=== PATIENT | male | born 1960 | race Caucasian/White ===

== ENCOUNTER 2023-09-04 04:11 | Day surgery (SDC) | payer BC ==
[2023-09-04 04:15] VITALS: BMI 27.8
[2023-09-04] MEDS ORDERED: IBUPROFEN 400 MG TABLET (FP) PO ONE ×2 (04:40→04:45)
[2023-09-04 05:11] LABS: PH,URINE 6.5 (5.0-8.0); URINE APPEARANCE Clear; URINE BILIRUBIN Negative (NEGATIVE); URINE COLOR Yellow; URINE GLUCOSE (UA) Negative (NEGATIVE); URINE KETONE Trace (NEGATIVE); URINE LEUK ESTERASE Negative (NEGATIVE); URINE NITRITE Negative (NEGATIVE); URINE PROTEIN 2+ (NEGATIVE)
[2023-09-04] MEDS ORDERED: SODIUM CHLORIDE 0.9% 500 ML INFUS.BAG IV ONE ×2 (06:05→07:42)
[2023-09-04 07:09] LABS: BASO % 0.6 % (0-2.0); EOS % 1.4 % (0-4.5); HEMATOCRIT 40.8 % (35.4-49); HEMOGLOBIN 13.9 GM/dL (11.7-16.9); LYMPH % 18.2 % (8-40); MCH 32.3 pg (25.7-33.7); MEAN CELL VOLUME 95.1 fl (80-96); MEAN PLT VOLUME 7.7 fl (7.5-11.1); MONO % 7.4 % (3.8-10.2); NEUT % 72.4 % (42.8-82.8); PLATELET COUNT 265 10^3/uL (134-434); RDW 13.1 % (11.9-15.9); WHITE BLOOD COUNT 10.1 K/mm3 (4.0-10.0)
[2023-09-04 07:23] LABS: POTASSIUM 4.4 mmol/L (3.5-5.1)
[2023-09-04 07:25] LABS: ALBUMIN 3.4 g/dl (3.4-5.0); BLOOD UREA NITROGEN 16.7 mg/dL (7-18); CALCIUM 8.7 mg/dL (8.5-10.1)
[2023-09-04 07:28] LABS: CREATININE 1.4 mg/dL (0.55-1.3)
[2023-09-04 07:30] LABS: BILIRUBIN,TOTAL 0.3 mg/dL (0.2-1); TOT PROT 6.4 g/dl (6.4-8.2)
[2023-09-04] MEDS ORDERED: LACTATED RINGERS SOLUTION 1,000 ML/1,000 ML INFUS.BAG IV SCH ×2 (08:15→14:18)
[2023-09-04 08:20] LABS: INR 0.92 (0.83-1.09); PROTHROMBIN TIME (PATIENT) 10.7 SEC (9.7-13.0)
[2023-09-04] MEDS ORDERED: KETOROLAC TROMETHAMINE 15 MG/ML VIAL IVPUSH PRN (08:26)
[2023-09-04] MEDS ORDERED: TAMSULOSIN HCL 0.4 MG CAP PO ONE (08:45)
[2023-09-04] MEDS ORDERED: TAMSULOSIN HCL 0.4 MG CAP ONE (09:04)
[2023-09-04] MEDS ORDERED: KETOROLAC TROMETHAMINE 30 MG/1 ML VIAL ONE (09:19)
[2023-09-04] MEDS ORDERED: ACETAMINOPHEN 1000 MG/100 ML BAG IVPB PRN ×2 (09:29→14:18)
[2023-09-04] MEDS ORDERED: metoPROLOL SUCCINATE 25 MG TAB.SR.24H (FP) PO SCH (10:00)
[2023-09-04] MEDS ORDERED: metoPROLOL SUCCINATE 25 MG TAB.SR.24H (FP) PO ONE (10:44)
[2023-09-04] MEDS ORDERED: ACETAMINOPHEN INJECTION 100 ML IVPB ONE (11:07)
[2023-09-04] MEDS ORDERED: PROPOFOL 20 ML ONE ×2 (13:00→13:31)
[2023-09-04] MEDS ORDERED: MIDAZOLAM HCL 2 MG/2 ML SINGLE DOSE VIAL ONE (13:00)
[2023-09-04] MEDS ORDERED: ceFAZolin SODIUM 1 GM VIAL IVPB ONE (13:32)
[2023-09-04] MEDS ORDERED: ceFAZolin SODIUM 1 GM VIAL ONE (13:35)
[2023-09-04] MEDS ORDERED: DEXAMETHASONE SOD PHOSPHATE 4 MG/1 ML VIAL ONE (13:35)
[2023-09-04] MEDS ORDERED: ONDANSETRON 4 MG/2 ML VIAL ONE ×2 (13:35→14:09)
[2023-09-04] MEDS ORDERED: IOHEXOL 300 MG/ML INFUS..BTL IJ ONE (13:45)
[2023-09-04] MEDS ORDERED: SEVOFLURANE 250 ML BTL ONE (13:46)
[2023-09-04] MEDS ORDERED: HEPARIN NA (PORCINE) 5,000 UNITS/ML 1ML VIAL SQ SCH (14:00)
[2023-09-04] MEDS ORDERED: oxyCODONE HCL 5 MG TABLET PO PRN (14:12)
[2023-09-04] MEDS ORDERED: ONDANSETRON 4 MG/2 ML VIAL IVPUSH PRN (14:12)
[2023-09-04 16:54] VITALS: RESP 18
[2023-09-04] MEDS: INSULIN SLIDING SCALE (NOVOLOG) 1 VIAL SQ SCH ×2 (17:31→22:42)
[2023-09-04] MEDS ORDERED: ROSUVASTATIN CA 10 MG TABLET PO SCH ×2 (22:00)
[2023-09-05] MEDS: INSULIN SLIDING SCALE (NOVOLOG) 1 VIAL SQ SCH ×2 (06:42→11:20)
[2023-09-05] MEDS ORDERED: metoPROLOL SUCCINATE 25 MG TAB.SR.24H (FP) PO SCH (10:00)
[2023-09-05 12:24] VITALS: BP 122/69; PULSE 86; TEMP 97.8
== END 2023-09-05 12:33 | disposition home or self-care (01) ==
LOC: JER 04:11 → JERBED 08:16 → UNDOADMOB 08:16 → J6S 16:18 → JERBED 16:18 → J6S 09-05 09:54 → JASUSAT 09-05 10:01 → J6S 09-05 10:08 → JASUSAT 09-05 12:33
PROVIDERS: ATTEND Internal Medicine
PROC: 0WHR8YZ Insertion of Other Device into Genitourinary Tract, Via Natural or Artificial Opening Endoscopic (ICD-10-PCS; principal; 2023-09-05)
DX: N13.30 Unspecified hydronephrosis (principal)
CPT/HCPCS: 36415; 74176-TC; 76000-TC-FY; 80053; 81003; 82962; 83036; 85025; 85610; 86850; 86900; 86901; 93005; 93010; 94760; 99285-25; C2617

== ENCOUNTER 2023-09-20 04:46 | Day surgery (SDC) | payer BC ==
[2023-09-15 14:32] VITALS: BMI 26.4
[2023-09-20] MEDS ORDERED: IOHEXOL 300 MG/ML INFUS..BTL IV ONE ×3 (16:34→17:08)
[2023-09-20] MEDS ORDERED: FENTANYL CITRATE/PF 50 MCG/ML VIAL ONE (16:58)
[2023-09-20] MEDS ORDERED: MIDAZOLAM HCL 2 MG/2 ML SINGLE DOSE VIAL ONE (16:58)
[2023-09-20] MEDS ORDERED: PROPOFOL 20 ML ONE (16:58)
[2023-09-20] MEDS ORDERED: LIDOCAINE HCL/PF 2% SDV 5ML VIAL ONE (16:59)
[2023-09-20] MEDS ORDERED: ONDANSETRON 4 MG/2 ML VIAL ONE (16:59)
[2023-09-20] MEDS ORDERED: ceFAZolin SODIUM 1 GM VIAL ONE (17:08)
[2023-09-20] MEDS ORDERED: ceFAZolin SODIUM 1 GM VIAL IVPB ONE (17:08)
[2023-09-20] MEDS ORDERED: KETOROLAC TROMETHAMINE 30 MG/1 ML VIAL ONE (17:10)
[2023-09-20] MEDS ORDERED: SEVOFLURANE 250 ML BTL ONE (17:31)
[2023-09-20] MEDS ORDERED: ONDANSETRON 4 MG/2 ML VIAL IVPUSH PRN (17:44)
[2023-09-20] MEDS ORDERED: oxyCODONE HCL 5 MG TABLET PO PRN ×2 (17:44)
[2023-09-20] MEDS ORDERED: ACETAMINOPHEN 1000 MG/100 ML BAG IVPB PRN (17:44)
[2023-09-20] MEDS ORDERED: PROMETHAZINE HCL 25 MG/1 ML VIAL IVPB PRN (17:44)
[2023-09-20] MEDS ORDERED: LACTATED RINGERS SOLUTION 1,000 ML IV SCH (17:45)
[2023-09-20] MEDS ORDERED: oxyCODONE HCL 10 MG SUSTAINED ACTING TABLET ONE (18:57)
[2023-09-20 19:06] VITALS: TEMP 98.3
[2023-09-20 20:43] VITALS: BP 130/81; PULSE 75; RESP 20
== END 2023-09-20 20:39 | disposition home or self-care (01) ==
LOC: JASU-SURG 04:46
PROVIDERS: ATTEND Urology
PROC: 0TC68ZZ Extirpation of Matter from Right Ureter, Via Natural or Artificial Opening Endoscopic (ICD-10-PCS; principal; 2023-09-20 14:00)
PROC: 0T768DZ Dilation of Right Ureter with Intraluminal Device, Via Natural or Artificial Opening Endoscopic (ICD-10-PCS; 2023-09-20 14:00)
DX: N40.1 Benign prostatic hyperplasia with lower urinary tract symptoms (principal)
CPT/HCPCS: 76000-TC-FY; 82962; 94760; C1758; C2617

== ENCOUNTER 2023-09-20 11:00 | Emergency (ER) | payer BC ==
[2023-09-20 11:22] VITALS: BP 148/101; PULSE 101; RESP 18; TEMP 97.9; BMI 27.8
== END 2023-09-20 12:22 | disposition home or self-care (01) ==
LOC: JER 11:00 → JERFT 11:00
DX: N20.0 Calculus of kidney (principal); Z13.89 Encounter for screening for other disorder
CPT/HCPCS: 71046-TC-FY; 99283-25